=== PATIENT | female | born 1955 | race Caucasian/White ===

== ENCOUNTER 2016-08-24 23:48 | Outpatient (CLI) | END 2016-08-24 23:49 | disposition home or self-care (01) | LOC: AMBL 23:48 | PROVIDERS: ATTEND Family Medicine | DX: R07.9 Chest pain, unspecified (principal); R00.1 Bradycardia, unspecified; M32.9 Systemic lupus erythematosus, unspecified; I10 Essential (primary) hypertension; Z85.3 Personal history of malignant neoplasm of breast; Z79.01 Long term (current) use of anticoagulants; Z79.899 Other long term (current) drug therapy ==

== ENCOUNTER 2018-04-05 14:23 | Outpatient (RCR) ==
[2017-02-24 03:34] VITALS: BMI 29.5
== END 2018-04-26 23:59 | disposition short-term general hospital (02) ==
PROVIDERS: ATTEND Orthopaedic Surgery
DX: S62.115D Nondisplaced fracture of triquetrum [cuneiform] bone, left wrist, subsequent encounter for fracture with routine healing (principal)
CPT/HCPCS: 97039

== ENCOUNTER 2018-04-23 11:00 | Outpatient (RCR) ==
[2017-02-24 03:34] VITALS: BMI 29.5
== END 2018-04-26 23:59 | disposition short-term general hospital (02) ==
PROVIDERS: ATTEND Orthopaedic Surgery
DX: S62.115D Nondisplaced fracture of triquetrum [cuneiform] bone, left wrist, subsequent encounter for fracture with routine healing (principal)